=== PATIENT | female | born 1960 | race American Indian/Alaskan Native ===

== ENCOUNTER 2016-12-14 10:44 | Outpatient (CLI) | payer BC ==
--- NOTE | 2016-12-14 11:42 | Mammography Report ---
Bilateral mammogram: Compared to 06/17/15. CAD study utilized. Findings: Predominance of adipose tissue bilaterally. Benign calcifications right breast without interval change. No mass. Normal axilla. Impression: Benign findings. Annual followup recommended. BI-RADS CATEGORY: 2 = Benign ACR BI-RADS MAMMOGRAPHIC CODES: 0 = Needs additional imaging evaluation; 1 = Negative; 2 = Benign; 3 = Probably benign; 4 = Suspicious; 5 = Malignant; 6 = Known biopsy-proven malignancy COMMENT: 1. Dense breast tissue, i.e., adenosis, fibrocystic changes, etc., may obscure an underlying neoplasm. 2. Approximately 10% of cancers are not detected with mammography. 3. A negative mammography report should not delay biopsy if a clinically suspicious mass is present. COMMENT: Patient follow-up letters are generated in [place].
== END 2016-12-14 10:45 | disposition home or self-care (01) ==
LOC: MAMMO 10:44
PROVIDERS: ATTEND Obstetrics & Gynecology
DX: Z12.31 Encounter for screening mammogram for malignant neoplasm of breast (principal)
CPT/HCPCS: 77067; G0202

== ENCOUNTER 2018-01-23 13:28 | Outpatient (CLI) | payer BC ==
--- NOTE | 2018-01-23 14:39 | Mammography Report ---
Screening mammogram: Routine views are compared to prior exams dating back to 2013. There is an intermediate fibroglandular pattern an 8 generally symmetric distribution. There is a stable grouping of dystrophic appearing calcifications in the inferomedial left breast. In the central left breast there is a nodular appearing asymmetry which was barely visible on 2017 exam and is larger on the current study measuring approximately 1 cm. The breast pattern otherwise is unchanged bilaterally. CAD used. Impression: Left asymmetry. Recommendation: Additional compression imaging of the left breast and ultrasound as needed. BI-RADS CATEGORY: 0 = Needs additional imaging evaluation ACR BI-RADS MAMMOGRAPHIC CODES: 0 = Needs additional imaging evaluation; 1 = Negative; 2 = Benign; 3 = Probably benign; 4 = Suspicious; 5 = Malignant; 6 = Known biopsy-proven malignancy COMMENT: 1. Dense breast tissue, i.e., adenosis, fibrocystic changes, etc., may obscure an underlying neoplasm. 2. Approximately 10% of cancers are not detected with mammography. 3. A negative mammography report should not delay biopsy if a clinically suspicious mass is present.
== END 2018-01-23 13:29 | disposition home or self-care (01) ==
LOC: MAMMO 13:28
PROVIDERS: ATTEND Obstetrics & Gynecology
DX: Z12.31 Encounter for screening mammogram for malignant neoplasm of breast (principal)
CPT/HCPCS: 77067

== ENCOUNTER 2018-03-02 14:31 | Outpatient (CLI) | payer BC ==
--- NOTE | 2018-03-02 16:11 | Mammography Report ---
LEFT DIGITAL DIAGNOSTIC MAMMOGRAM and LEFT BREAST ULTRASOUND: 03/02/18 15:30:00 CLINICAL: Recalled for asymmetry. COMPARISON: 01/23/18 screening mammogram FINDINGS: Lateralmedial and spot compression MLO and CC views were performed. An oval partially circumscribed persists on all views and measures approximately 9-10 mm maximum. It is located at 3 o'clock approximately 12 cm from the nipple. Ultrasound of the outer left breast was performed and demonstrated a round complex cyst versus solid mass at 2 o'clock 8 cm from the nipple.It has a partially irregular margin and measures approximately 8 mm. On some images it is isoechoic with adjacent fat lobules and all other images it is slightly hypoechoic. No other mass or cyst is identified to correlate with the mammographic density. IMPRESSION: A suspicious 8-10 mm complex cyst versus solid mass at 2 to 3 o'clock 8-12 cm from the nipple.Recommend ultrasound-guided needle biopsy to exclude malignancy and a post biopsy mammogram to determine if this lesion is concordant with the mammographic lesion. BI-RADS CATEGORY: 4--Suspicious The patient was told at the time of the examination that a biopsy is being recommended. ACR BI-RADS MAMMOGRAPHIC CODES: 0 = Needs additional imaging evaluation; 1 = Negative; 2 = Benign; 3 = Probably benign; 4 = Suspicious; 5 = Malignant; 6 = Known biopsy-proven malignancy COMMENT: 1. Dense breast tissue, i.e., adenosis, fibrocystic changes, etc., may obscure an underlying neoplasm. 2. Approximately 10% of cancers are not detected with mammography. 3. A negative mammography report should not delay biopsy if a clinically suspicious mass is present. COMMENT: Patient follow-up letters are generated via our [employer] application.
== END 2018-03-02 14:32 | disposition home or self-care (01) ==
LOC: MAMMO 14:31
PROVIDERS: ATTEND Obstetrics & Gynecology
DX: R92.8 Other abnormal and inconclusive findings on diagnostic imaging of breast (principal)